=== PATIENT | male | born 1955 | race African-American/Black ===

== ENCOUNTER 2024-03-15 03:14 | Inpatient (IN) | payer MEDICARE ==
[2024-03-15] MEDS ORDERED: Magnesium 2 GM/50 ML BAG (IN WATER) ONE (03:24)
[2024-03-15] MEDS ORDERED: Metoprolol Tartrate 5 MG (5 mL) VIAL ONE ×2 (03:25→03:37)
[2024-03-15] MEDS ORDERED: Amiodarone 150 MG/3 ML VIAL ONE ×2 (03:47→03:49)
[2024-03-15 03:52] LABS: #Basophils Less than 0.03 10x3/uL (0.0-0.2); %Basophils 0.1 % (0.0-1.0); %Eosinophils 0.3 % (0.0-10.0); %Lymphocytes 9.7 % (21.0-51.0); %Monocytes 5.2 % (0.0-10.0); %Neutrophils 84.1 % (42.0-75.0); Hematocrit 40.5 % (42.0-52.0); Hemoglobin 12.5 g/dL (14.0-18.0); Mean Corpuscular HGB CONC 30.9 g/dL (32.0-36.0); Mean Corpuscular Hemoglobin 26.8 pg (27.0-31.0); Mean Corpuscular Volume 86.9 fL (78.0-98.0); Mean Platelet Volume 10.7 fL (7.4-10.4); Platelet Count 255 10x3/uL (130-400); Red Blood Cell (RBC) Count 4.66 mill/uL (4.70-6.10)
[2024-03-15 04:09] LABS: ALT (SGPT) 11 U/L (8-55); AST (SGOT) 16 U/L (5-34); Albumin 2.9 g/dL (3.4-4.8); Alkaline Phosphatase 75 U/L (40-110); Anion Gap 13 mmol/L (10-20); BUN (Urea Nitrogen) 38 mg/dL (8.4-25.7); Bilirubin, Total 0.6 mg/dL (0.2-1.2); Calc. Creatinine Clearance 0 mL/min (70-130); Calcium 8.6 mg/dL (7.8-10.44); Carbon Dioxide 31 mmol/L (23-31); Chloride 93 mmol/L (98-107); Estimated GFR 67; Globulin 3.4 g/dL (2.4-3.5); Glucose 153 mg/dL (80-115); INR-International Normal Ratio 1.2; Lipase 22 U/L (8-78); Magnesium 2.1 mg/dL (1.6-2.6); Potassium 4.3 mmol/L (3.5-5.1); Protein, Total 6.3 g/dL (5.8-8.1); Sodium 133 mmol/L (136-145)
[2024-03-15 04:10] LABS: PTT 31.1 sec (22.9-36.1)
[2024-03-15] MEDS ORDERED: diphenhydrAMINE 50 MG/ML VIAL ONE (04:25)
[2024-03-15] MEDS ORDERED: methylPREDNISolone Sod Succ 40 MG VIAL ONE (04:26)
[2024-03-15] MEDS ORDERED: Famotidine/PF 20 mg/2ml Vial ONE (04:26)
[2024-03-15 04:50] LABS: Troponin I 0.069 ng/mL (< 0.028)
[2024-03-15] MEDS ORDERED: Aspirin Chewable 81 MG TAB ONE (05:49)
[2024-03-15 08:06] LABS: Hemoglobin A1c 6.1 % (4.0-6.0)
[2024-03-15 08:13] LABS: Cardiac Risk 2.9 (Less than 4.5)
[2024-03-15] MEDS ORDERED: Benzonatate 100 MG CAP PO PRN (08:16)
[2024-03-15] MEDS ORDERED: Loperamide HCl 2 MG CAP PO PRN ×2 (08:16)
[2024-03-15] MEDS ORDERED: Moisturizing Cream (Eucerin) 113 GM JAR TOP PRN (08:16)
[2024-03-15] MEDS ORDERED: Nitroglycerin 0.4 MG TAB (25 Tab Bottle) SL PRN (08:16)
[2024-03-15] MEDS ORDERED: Senokot S 8.6-50 MG TAB PO PRN (08:16)
[2024-03-15] MEDS ORDERED: Sodium Chloride 0.65% Nasal 44 ML BOT EA NARE PRN (08:16)
[2024-03-15] MEDS ORDERED: Bisacodyl 5 MG TAB PO PRN (08:16)
[2024-03-15] MEDS ORDERED: Ondansetron PF 4 MG/2 ML Vial IVP PRN (08:16)
[2024-03-15] MEDS ORDERED: Loratadine 10 MG TAB PO PRN (08:16)
[2024-03-15] MEDS ORDERED: Artificial Tear Sol 15 ML BOT EA EYE PRN (08:16)
[2024-03-15] MEDS ORDERED: Acetaminophen 650 MG Suppository PR PRN (08:16)
[2024-03-15] MEDS ORDERED: Ipratropium Bromide 2.5 ml Neb NEB PRN ×2 (08:20→08:35)
[2024-03-15 08:21] LABS: Troponin I 0.066 ng/mL (< 0.028)
[2024-03-15] MEDS ORDERED: Digoxin 0.5 MG/2 ML AMP SLOW IVP SCH (08:30)
[2024-03-15] MEDS ORDERED: Clopidogrel Bisulfate 75 MG TAB PO SCH (09:00)
[2024-03-15] MEDS ORDERED: Clopidogrel Bisulfate 75 MG TAB ONE (09:06)
[2024-03-15] MEDS ORDERED: Nicotine 14 MG PATCH ONE (09:07)
[2024-03-15] MEDS ORDERED: Apixaban 5 MG TAB ONE (09:07)
[2024-03-15] MEDS ORDERED: Famotidine 20 MG TAB ONE (09:07)
[2024-03-15] MEDS ORDERED: cefTRIAXone (ROCEPHIN) 1 GM VIAL ONE (09:08)
[2024-03-15] MEDS ORDERED: Sodium Chloride 0.9% 100 ML ONE (09:08)
[2024-03-15] MEDS: Famotidine 20 MG TAB PO SCH (09:10)
[2024-03-15] MEDS: Nicotine 14 MG PATCH TD SCH (09:10)
[2024-03-15] MEDS: Apixaban 5 MG TAB PO SCH (09:10)
[2024-03-15] MEDS ORDERED: Dextrose 5% in Water 1,000 ML IV PRN (09:14)
[2024-03-15] MEDS ORDERED: Glucagon 1 MG/ML KIT IM PRN (09:14)
[2024-03-15] MEDS ORDERED: Dextrose 50% Abboject 50 ML SYRINGE SLOW IVP PRN (09:14)
[2024-03-15 09:27] VITALS: BMI 44.8
[2024-03-15 10:16] LABS: Digoxin 0.85 ng/mL (0.8-2.0)
[2024-03-15] MEDS ORDERED: Digoxin 0.5 MG/2 ML AMP ONE (10:25)
[2024-03-15] MEDS: Digoxin 0.5 MG/2 ML AMP SLOW IVP SCH ×2 (10:30→16:14)
[2024-03-15] MEDS: Amiodarone 150 MG, Admixture Fee 1 EACH in Dextrose 5% in Water 100 ML IVPB SCH (11:11)
[2024-03-15 11:27] LABS: Troponin I 0.055 ng/mL (< 0.028)
[2024-03-15] MEDS: Ipratropium Bromide 2.5 ml Neb NEB SCH (14:33)
[2024-03-15] MEDS: Amiodarone 450 MG, Admixture Fee 1 EACH in Dextrose 5% in Water 250 ML IVPB SCH (15:20)
[2024-03-15] MEDS ORDERED: Iopamidol-370 76% 500 ML MDV (1 ML CHARGE) ONE (15:24)
[2024-03-15] MEDS: dilTIAZem 25 MG/5 ML VIAL SLOW IVP SCH (17:42)
[2024-03-15] MEDS: dilTIAZem 125 MG in Sodium Chloride 0.9% 100 ML IVPB SCH (17:43)
[2024-03-15] MEDS: Budesonide 0.25 MG/2 ML NEB INH SCH (18:56)
[2024-03-15] MEDS: Tamsulosin HCl 0.4 MG CAP PO SCH (20:52)
[2024-03-15] MEDS: Atorvastatin Calcium 40 MG TAB PO SCH (20:52)
[2024-03-15] MEDS: Montelukast Sodium 10 mg Tablet PO SCH (20:52)
[2024-03-16 06:58] LABS: #Basophils Less than 0.03 10x3/uL (0.0-0.2); %Basophils 0.1 % (0.0-1.0); %Eosinophils 0.5 % (0.0-10.0); %Lymphocytes 15.4 % (21.0-51.0); %Monocytes 10.6 % (0.0-10.0); Hematocrit 40.9 % (42.0-52.0); Hemoglobin 12.4 g/dL (14.0-18.0); Mean Corpuscular HGB CONC 30.3 g/dL (32.0-36.0); Mean Corpuscular Hemoglobin 26.8 pg (27.0-31.0); Mean Corpuscular Volume 88.3 fL (78.0-98.0); Mean Platelet Volume 10.8 fL (7.4-10.4); Platelet Count 265 10x3/uL (130-400); Red Blood Cell (RBC) Count 4.63 mill/uL (4.70-6.10)
[2024-03-16 07:17] LABS: Anion Gap 8 mmol/L (10-20); BUN (Urea Nitrogen) 33 mg/dL (8.4-25.7); Calc. Creatinine Clearance 187 mL/min (70-130); Calcium 8.8 mg/dL (7.8-10.44); Carbon Dioxide 38 mmol/L (23-31); Chloride 95 mmol/L (98-107); Estimated GFR 84; Glucose 93 mg/dL (80-115); Potassium 3.9 mmol/L (3.5-5.1); Sodium 137 mmol/L (136-145)
[2024-03-16] MEDS: Aspirin 81 mg Enteric Coated Tablet PO SCH (08:49)
[2024-03-16] MEDS: dilTIAZem 30 MG TAB PO SCH (08:49)
[2024-03-16] MEDS: Empagliflozin 10 MG TAB PO SCH (08:49)
[2024-03-16] MEDS: cefTRIAXone\\ROCEPHIN 1 GM in Sodium Chloride 0.9% 100 ML IVPB SCH (08:50)
[2024-03-16] MEDS: dilTIAZem ER 60 MG CAP PO SCH (10:35)
[2024-03-16] MEDS: predniSONE 20 MG TAB PO SCH (14:06)
[2024-03-16] MEDS: Acetaminophen 325 MG TAB PO PRN (20:59)
[2024-03-17 04:42] LABS: #Basophils Less than 0.03 10x3/uL (0.0-0.2); #Eosinphils Less than 0.03 10x3/uL (0.0-0.7); %Basophils 0.1 % (0.0-1.0); %Eosinophils 0.1 % (0.0-10.0); %Lymphocytes 13.5 % (21.0-51.0); %Monocytes 9.6 % (0.0-10.0); %Neutrophils 76.1 % (42.0-75.0); Hematocrit 44.4 % (42.0-52.0); Hemoglobin 12.8 g/dL (14.0-18.0); Mean Corpuscular HGB CONC 28.8 g/dL (32.0-36.0); Mean Corpuscular Hemoglobin 26.6 pg (27.0-31.0); Mean Corpuscular Volume 92.3 fL (78.0-98.0); Mean Platelet Volume 10.7 fL (7.4-10.4); Platelet Count 199 10x3/uL (130-400); Red Blood Cell (RBC) Count 4.81 mill/uL (4.70-6.10)
[2024-03-17 05:20] LABS: Hypochromia SLIGHT = 6-15 cells HPF (0-5); Platelet Adequacy Comment Platelets Normal
[2024-03-17 05:48] LABS: Anion Gap 18 mmol/L (10-20); BUN (Urea Nitrogen) 30 mg/dL (8.4-25.7); Calc. Creatinine Clearance 197 mL/min (70-130); Calcium 8.8 mg/dL (7.8-10.44); Carbon Dioxide 21 mmol/L (23-31); Chloride 98 mmol/L (98-107); Estimated GFR 89; Glucose 84 mg/dL (80-115); Potassium 5.3 mmol/L (3.5-5.1); Sodium 132 mmol/L (136-145)
[2024-03-17] MEDS: HYDROcodone/Acetaminophen 5/325 mg Tablet PO PRN (08:17)
[2024-03-17] MEDS: predniSONE 20 MG TAB PO SCH (08:18)
[2024-03-17] MEDS: Amiodarone 150 MG, Admixture Fee 1 EACH in Dextrose 5% in Water 100 ML IVPB SCH (15:38)
[2024-03-17] MEDS: Amiodarone 450 MG in Dextrose 5% in Water 250 ML IVPB SCH (15:38)
[2024-03-17] MEDS: Ondansetron ODT 4 MG TAB PO PRN (20:06)
[2024-03-18 04:21] LABS: #Basophils Less than 0.03 10x3/uL (0.0-0.2); %Basophils 0.1 % (0.0-1.0); %Eosinophils 0.4 % (0.0-10.0); %Lymphocytes 15.6 % (21.0-51.0); %Monocytes 7.2 % (0.0-10.0); Hematocrit 40.9 % (42.0-52.0); Hemoglobin 12.3 g/dL (14.0-18.0); Mean Corpuscular HGB CONC 30.1 g/dL (32.0-36.0); Mean Corpuscular Hemoglobin 27.2 pg (27.0-31.0); Mean Corpuscular Volume 90.3 fL (78.0-98.0); Mean Platelet Volume 10.4 fL (7.4-10.4); Platelet Count 269 10x3/uL (130-400); RBC Distribution Width 14.6 % (11.5-14.5); Red Blood Cell (RBC) Count 4.53 mill/uL (4.70-6.10)
[2024-03-18 04:53] LABS: Anion Gap 13 mmol/L (10-20); BUN (Urea Nitrogen) 32 mg/dL (8.4-25.7); Calc. Creatinine Clearance 153 mL/min (70-130); Calcium 8.8 mg/dL (7.8-10.44); Carbon Dioxide 31 mmol/L (23-31); Chloride 97 mmol/L (98-107); Estimated GFR 66; Glucose 132 mg/dL (80-115); Potassium 4.6 mmol/L (3.5-5.1); Sodium 136 mmol/L (136-145)
[2024-03-18] MEDS: Calcium Carbonate 500 MG ChewTAB PO PRN (11:56)
[2024-03-18] MEDS: HumaLOG 300 UNITS/3 ML VIAL SC PRN (17:49)
[2024-03-19 03:49] LABS: #Basophils Less than 0.03 10x3/uL (0.0-0.2); %Basophils 0.1 % (0.0-1.0); %Eosinophils 0.6 % (0.0-10.0); %Lymphocytes 13.2 % (21.0-51.0); %Monocytes 7.9 % (0.0-10.0); %Neutrophils 77.6 % (42.0-75.0); Hematocrit 40.5 % (42.0-52.0); Hemoglobin 11.9 g/dL (14.0-18.0); Mean Corpuscular HGB CONC 29.4 g/dL (32.0-36.0); Mean Corpuscular Hemoglobin 26.3 pg (27.0-31.0); Mean Corpuscular Volume 89.4 fL (78.0-98.0); Mean Platelet Volume 10.4 fL (7.4-10.4); Platelet Count 253 10x3/uL (130-400); RBC Distribution Width 14.5 % (11.5-14.5); Red Blood Cell (RBC) Count 4.53 mill/uL (4.70-6.10)
[2024-03-19 04:21] LABS: Anion Gap 11 mmol/L (10-20); BUN (Urea Nitrogen) 27 mg/dL (8.4-25.7); Calc. Creatinine Clearance 171 mL/min (70-130); Calcium 8.5 mg/dL (7.8-10.44); Carbon Dioxide 33 mmol/L (23-31); Chloride 98 mmol/L (98-107); Estimated GFR 81; Glucose 91 mg/dL (80-115); Potassium 4.8 mmol/L (3.5-5.1); Sodium 137 mmol/L (136-145)
[2024-03-19] MEDS: Furosemide 40 MG (4 mL) VIAL SLOW IVP SCH (16:00)
[2024-03-20 05:13] LABS: #Basophils Less than 0.03 10x3/uL (0.0-0.2); %Basophils 0.1 % (0.0-1.0); %Eosinophils 1.3 % (0.0-10.0); %Lymphocytes 13.6 % (21.0-51.0); %Monocytes 6.3 % (0.0-10.0); %Neutrophils 78.3 % (42.0-75.0); Hematocrit 41.7 % (42.0-52.0); Hemoglobin 12.4 g/dL (14.0-18.0); Mean Corpuscular HGB CONC 29.7 g/dL (32.0-36.0); Mean Corpuscular Hemoglobin 26.1 pg (27.0-31.0); Mean Corpuscular Volume 87.6 fL (78.0-98.0); Mean Platelet Volume 10.8 fL (7.4-10.4); Platelet Count 257 10x3/uL (130-400); RBC Distribution Width 14.8 % (11.5-14.5); Red Blood Cell (RBC) Count 4.76 mill/uL (4.70-6.10)
[2024-03-20 05:45] LABS: Anion Gap 10 mmol/L (10-20); BUN (Urea Nitrogen) 32 mg/dL (8.4-25.7); Calc. Creatinine Clearance 157 mL/min (70-130); Calcium 8.7 mg/dL (7.8-10.44); Carbon Dioxide 35 mmol/L (23-31); Chloride 98 mmol/L (98-107); Estimated GFR 73; Glucose 91 mg/dL (80-115); Potassium 4.9 mmol/L (3.5-5.1); Sodium 138 mmol/L (136-145)
[2024-03-20] MEDS ORDERED: Ketamine In 0.9 % NaCl 50 MG/5 ML SYRINGE ONE (12:08)
[2024-03-20] MEDS ORDERED: Lidocaine 1% PF 5 ML VIAL ONE (12:18)
[2024-03-20] MEDS ORDERED: PROPOFOL 200 MG/20 ML VIAL ONE (12:18)
[2024-03-20] MEDS: Amiodarone 200 MG TAB PO SCH (20:22)
[2024-03-21 04:59] LABS: #Basophils Less than 0.03 10x3/uL (0.0-0.2); %Basophils 0.1 % (0.0-1.0); %Eosinophils 2.6 % (0.0-10.0); %Lymphocytes 11.7 % (21.0-51.0); %Monocytes 7.7 % (0.0-10.0); %Neutrophils 77.4 % (42.0-75.0); Hematocrit 39.5 % (42.0-52.0); Hemoglobin 12.2 g/dL (14.0-18.0); Mean Corpuscular HGB CONC 30.9 g/dL (32.0-36.0); Mean Corpuscular Hemoglobin 27.1 pg (27.0-31.0); Mean Corpuscular Volume 87.6 fL (78.0-98.0); Mean Platelet Volume 10.6 fL (7.4-10.4); Platelet Count 245 10x3/uL (130-400); RBC Distribution Width 15.2 % (11.5-14.5); Red Blood Cell (RBC) Count 4.51 mill/uL (4.70-6.10)
[2024-03-21 05:44] LABS: Anion Gap 12 mmol/L (10-20); BUN (Urea Nitrogen) 30 mg/dL (8.4-25.7); Calc. Creatinine Clearance 152 mL/min (70-130); Calcium 8.9 mg/dL (7.8-10.44); Carbon Dioxide 33 mmol/L (23-31); Chloride 97 mmol/L (98-107); Estimated GFR 70; Glucose 81 mg/dL (80-115); Potassium 4.1 mmol/L (3.5-5.1); Sodium 138 mmol/L (136-145)
[2024-03-22 04:42] LABS: #Basophils Less than 0.03 10x3/uL (0.0-0.2); %Basophils 0.1 % (0.0-1.0); %Eosinophils 2.2 % (0.0-10.0); %Lymphocytes 11.4 % (21.0-51.0); %Monocytes 6.3 % (0.0-10.0); %Neutrophils 79.4 % (42.0-75.0); Hematocrit 36.6 % (42.0-52.0); Hemoglobin 11.2 g/dL (14.0-18.0); Mean Corpuscular HGB CONC 30.6 g/dL (32.0-36.0); Mean Corpuscular Hemoglobin 26.2 pg (27.0-31.0); Mean Corpuscular Volume 85.5 fL (78.0-98.0); Platelet Count 207 10x3/uL (130-400); RBC Distribution Width 15.3 % (11.5-14.5); Red Blood Cell (RBC) Count 4.28 mill/uL (4.70-6.10)
[2024-03-22 04:57] LABS: Anion Gap 14 mmol/L (10-20); BUN (Urea Nitrogen) 33 mg/dL (8.4-25.7); Calc. Creatinine Clearance 146 mL/min (70-130); Calcium 8.2 mg/dL (7.8-10.44); Carbon Dioxide 32 mmol/L (23-31); Chloride 96 mmol/L (98-107); Estimated GFR 67; Glucose 118 mg/dL (80-115); Sodium 138 mmol/L (136-145)
[2024-03-22] MEDS ORDERED: Lisinopril 10 MG TAB PO SCH (09:00)
[2024-03-22 12:20] VITALS: BMI 42.0
[2024-03-22] MEDS: Losartan 25 MG TAB PO SCH (15:17)
[2024-03-23 04:40] LABS: #Basophils Less than 0.03 10x3/uL (0.0-0.2); %Basophils 0.1 % (0.0-1.0); %Eosinophils 2.6 % (0.0-10.0); %Lymphocytes 13.4 % (21.0-51.0); %Monocytes 5.9 % (0.0-10.0); %Neutrophils 77.7 % (42.0-75.0); Hematocrit 37.4 % (42.0-52.0); Hemoglobin 11.4 g/dL (14.0-18.0); Mean Corpuscular HGB CONC 30.5 g/dL (32.0-36.0); Mean Corpuscular Hemoglobin 26.8 pg (27.0-31.0); Mean Corpuscular Volume 87.8 fL (78.0-98.0); Mean Platelet Volume 10.5 fL (7.4-10.4); Platelet Count 207 10x3/uL (130-400); RBC Distribution Width 15.1 % (11.5-14.5); Red Blood Cell (RBC) Count 4.26 mill/uL (4.70-6.10)
[2024-03-23 06:16] LABS: Anion Gap 11 mmol/L (10-20); BUN (Urea Nitrogen) 31 mg/dL (8.4-25.7); Calc. Creatinine Clearance 158 mL/min (70-130); Calcium 8.6 mg/dL (7.8-10.44); Carbon Dioxide 31 mmol/L (23-31); Chloride 97 mmol/L (98-107); Estimated GFR 74; Glucose 100 mg/dL (80-115); Potassium 4.1 mmol/L (3.5-5.1); Sodium 135 mmol/L (136-145)
[2024-03-23] MEDS: Carvedilol 6.25 MG TAB PO SCH (08:32)
[2024-03-23] MEDS: Losartan 25 MG TAB PO SCH (08:32)
[2024-03-23] MEDS ORDERED: Lisinopril 10 MG TAB PO SCH (09:00)
[2024-03-23 15:20] VITALS: BP 133/69; TEMP 97.5
== END 2024-03-23 18:30 | disposition home or self-care (01) | DRG 280 ==
LOC: ERS 03:14 → ERHOLD 07:28 → 2NO 10:57
PROVIDERS: ADMIT Family Medicine; ATTEND Internal Medicine
PROC: 5A2204Z Restoration of Cardiac Rhythm, Single (ICD-10-PCS; principal; 2024-03-20)
DX: I11.0 Hypertensive heart disease with heart failure (principal); I50.23 Acute on chronic systolic (congestive) heart failure; I21.A1 Myocardial infarction type 2; J96.11 Chronic respiratory failure with hypoxia; Z68.41 Body mass index [BMI] 40.0-44.9, adult; J44.1 Chronic obstructive pulmonary disease with (acute) exacerbation; I48.92 Unspecified atrial flutter; R78.81 Bacteremia; I48.0 Paroxysmal atrial fibrillation; L40.9 Psoriasis, unspecified; Z91.041 Radiographic dye allergy status; Z88.8 Allergy status to other drugs, medicaments and biological substances; Z79.899 Other long term (current) drug therapy; Z79.01 Long term (current) use of anticoagulants; M19.90 Unspecified osteoarthritis, unspecified site; E11.9 Type 2 diabetes mellitus without complications; I25.10 Atherosclerotic heart disease of native coronary artery without angina pectoris; N40.0 Benign prostatic hyperplasia without lower urinary tract symptoms; Z79.82 Long term (current) use of aspirin; E66.01 Morbid (severe) obesity due to excess calories; I42.8 Other cardiomyopathies
CPT/HCPCS: 36415; 36416; 71045; 71275; 80048; 80053; 80061; 80162; 83036; 83605; 83690; 83735; 83880; 84443; 84484; 85025; 85610; 85730; 87040; 87077; 87149; 87186; 92960; 93005; 93010; 93306; 94640; 94760; 96365; 96374; 96375; 96376; J0282; J0696; J1160; J1200; J1815; J1940; J2704; J2920; J3475; J3490; J7070; J7512; J7626; Q0162; Q9967; S0028